=== PATIENT | female | born 1995 | race Caucasian/White ===

== ENCOUNTER 2018-08-24 14:41 | Emergency (ER) | payer BC, MEDICAID, SELFPAY ==
[2018-08-24 14:44] VITALS: BP 113/59; PULSE 103; RESP 12; TEMP 36.5; O2SAT 99
--- NOTE | 2018-08-24 15:46 | W.ED.GENAD ---
Discharge Plan Disposition Patient Disposition: HOME Condition: Good Discharge Details Chief Complaint: Orthopedic Clinical Impression: Irritation symptom of skin Primary Care Provider: Muriel Middleton ED Provider: Kylie Wallace Home Meds and New Rx's Prescriptions: No Action No Known Home Meds RF: 0 Discharge Instructions Instructions: Ingrown Nail (ED) Additional Instructions: Encourage hydration. You may use Tylenol as needed for discomfort. Warm soaks to both the foot and the thumb 4 times daily. Monitor for signs of infection including spreading of the redness, increased pain, swelling, fever/chills. If these or other new/worsening symptoms arise please seek care urgently once again. Please try to let the nail grow out as discussed. enrollment coordinator will contact you regarding follow-up with primary care. Please keep your upcoming appointment with women's wellness Referrals: Muriel Middleton [Primary Care Provider] - Discharge Data Discharge Date/Time-TO BE ENTERED AT DEPARTURE: 08/24/18 15:57 Medical Decision Making Patient is a 23-year-old [id number] female presents today with chief complaint of left thumb pain. She reports over the past several days she has noted a small erythematous area to the radial side as the base of the nailbed. States that she did strike this at one point. She denies any fevers or chills. The area of erythema has remained constant and has not changed in size. On exam, she has a small area of erythema and irritation in approximate 3 mm in diameter. She also endorsing some discomfort to the medial aspect of the great toe along the nailbed but there is no evidence of infection. She feels that she may have cut this to short. I do not see any evidence of cellulitis or infection at this time. No evidence of abscess or paronychia. I advised warm soaks to both the foot and hand. Advised Tylenol for discomfort. Patient is 6 weeks gestation. She has upcoming appointment with women's wellness. I have asked her critical care clinical nurse specialist help facilitate follow-up with primary care. We discussed new/worsening symptoms when to seek care urgently once again. All other questions or concerns were addressed and she is in agreement with this plan. HPI General Mode of arrival: ambulatory. Date/Time Provider Initiated Documentation: 08/24/18 14:52. Limitations to Documentation: no limitations. Information obtained by: patient and family (brought in by mother). History of Present Illness 23 year old F presents to the emergency department with the chief complaint of skin irritation left thumb, described as mild, with intensity rated at 2. Quality is described as burning, and is localized to the left and upper extremity. Patient reports no radiation. Patient started experiencing this day(s) and it has been constant. No relieving factors improve symptom(s), Other factors that worsen symptoms (pressure applied to area) . Patient notes no other symptoms.. Patient did receive the following treatments prior to arrival, none Related Data Home Medications Medication Instructions Recorded Confirmed Unknown [No Known Home Meds] 08/24/18 08/24/18 Allergies Allergy/AdvReac Type Severity Reaction Status Date / Time gluten AdvReac Unverified 08/24/18 14:48 General Stated Complaint: Orthopedic MI: 5 Review of Systems Constitutional Reports as per HPI, Denies chills and Denies fever(s) Musculoskeletal Reports as per HPI Integumentary/Breasts Reports as per HPI Neurologic Reports as per HPI, Denies sensory deficit and Denies paresthesias [facility] Social History Smoking/Tobacco Use Status: Never Alcohol Intake: never Drug use: Never Substance use type: does not use Do you feel safe at home: Yes Do you feel safe in your relationship?: Yes Exam Const General: cooperative, healthy appearing, comfortable, no acute distress and well developed Nutritional Appearance: average body habitus and well nourished Orientation: alert and awake Resp Effort & Inspection: normal respiratory effort, able to speak in complete sentences and no respiratory distress Cardio Rate: regular rate Rhythm: regular rhythm Skin General skin exam: no crusts, erythema (Small area of erythema radial right thumb 3 mm), no fluctuance, no hypertrophy and no induration Neuro General: alert and awake Cognition: normal cognition Speech: speech normal Gait: normal gait Sensory Exam: no sensory deficits noted Extrem Left upper extremity: full ROM, normal capillary refill, no joint enlargement and hand Details: normal to inspection, normal capillary refill, neuromotor exam normal, neurosensory exam normal, tenderness (Over area of erythema), vascular exam Details: radial pulse present and normal capillary refill and normal ROM of fingers; no unusual warmth, no swelling, no abrasions, no lacerations, no ecchymosis and no puncture wound; abnormal to inspection (Area of erythema as above) Right lower extremity: normal to inspection, full ROM, normal capillary refill, no joint enlargement and foot Details: normal capillary refill and toes with normal ROM; no tenderness Psych Appearance: grossly normal and well kempt Mental Status: mental status grossly normal Speech and Movement: speech and movement normal Course Vital Signs Temperature 36.5 C 08/24/18 14:44 Pulse 103 H 08/24/18 14:44 Respiratory Rate 12 08/24/18 14:44 Blood Pressure 113/59 L 08/24/18 14:44 Pulse Oximetry 99 08/24/18 14:44 Temperature 36.5 C 08/24/18 14:44 Temperature Source Temporal Artery Scan 08/24/18 14:44 Pulse 103 H 08/24/18 14:44 Respiratory Rate 12 08/24/18 14:44 Respiratory Effort Non-Labored 08/24/18 14:46 Blood Pressure 113/59 L 08/24/18 14:44 Blood Pressure Position Sitting 08/24/18 14:44 Pulse Oximetry 99 08/24/18 14:44 Oxygen Delivery Method Room Air 08/24/18 14:44 Oxygen Flow Rate 0 08/24/18 14:44 Pain Level 2 08/24/18 14:47
--- NOTE | 2018-08-24 15:49 | ED.GENADUL_ITS ---
Discharge Plan Disposition Patient Disposition: HOME Condition: Good Discharge Details Chief Complaint: Orthopedic Clinical Impression: Irritation symptom of skin Primary Care Provider: Muriel Middleton ED Provider: Kylie Wallace Home Meds and New Rx's Prescriptions: No Action No Known Home Meds RF: 0 Discharge Instructions Instructions: Ingrown Nail (ED) Additional Instructions: Encourage hydration. You may use Tylenol as needed for discomfort. Warm soaks to both the foot and the thumb 4 times daily. Monitor for signs of infection including spreading of the redness, increased pain, swelling, fever/chills. If these or other new/worsening symptoms arise please seek care urgently once again. Please try to let the nail grow out as discussed. clinical unit coordinator will contact you regarding follow-up with primary care. Please keep your upcoming appointment with women's wellness Referrals: Muriel Middleton [Primary Care Provider] - Discharge Data Discharge Date/Time-TO BE ENTERED AT DEPARTURE: 08/24/18 15:57 Medical Decision Making Patient is a 23-year-old [id number] female presents today with chief complaint of left thumb pain. She reports over the past several days she has noted a small erythematous area to the radial side as the base of the nailbed. States that she did strike this at one point. She denies any fevers or chills. The area of erythema has remained constant and has not changed in size. On exam, she has a small area of erythema and irritation in approximate 3 mm in diameter. She also endorsing some discomfort to the medial aspect of the great toe along the nailbed but there is no evidence of infection. She feels that she may have cut this to short. I do not see any evidence of cellulitis or infection at this time. No evidence of abscess or paronychia. I advised warm soaks to both the foot and hand. Advised Tylenol for discomfort. Patient is 6 weeks gestation. She has upcoming appointment with women's wellness. I have asked her field care advocate help facilitate follow-up with primary care. We discussed new/worsening symptoms when to seek care urgently once again. All other questions or concerns were addressed and she is in agreement with this plan. HPI General Mode of arrival: ambulatory . Date/Time Provider Initiated Documentation: 08/24/18 14:52 . Limitations to Documentation: no limitations . Information obtained by: patient and family (brought in by mother) . History of Present Illness 23 year old F presents to the emergency department with the chief complaint of skin irritation left thumb, described as mild, with intensity rated at 2. Quality is described as burning, and is localized to the left and upper extremity. Patient reports no radiation. Patient started experiencing this day(s) and it has been constant. No relieving factors improve symptom(s), Other factors that worsen symptoms (pressure applied to area) . Patient notes no other symptoms.. Patient did receive the following treatments prior to arrival, none Related Data Home Medications Medication Instructions Recorded Confirmed Unknown [No Known Home Meds] 08/24/18 08/24/18 Allergies Allergy/AdvReac Type Severity Reaction Status Date / Time gluten AdvReac Unverified 08/24/18 14:48 General Stated Complaint: Orthopedic MI: 5 Review of Systems Constitutional Reports as per HPI, Denies chills and Denies fever(s) Musculoskeletal Reports as per HPI Integumentary/Breasts Reports as per HPI Neurologic Reports as per HPI, Denies sensory deficit and Denies paresthesias [facility] Social History Smoking/Tobacco Use Status: Never Alcohol Intake: never Drug use: Never Substance use type: does not use Do you feel safe at home: Yes Do you feel safe in your relationship?: Yes Exam Const General: cooperative, healthy appearing, comfortable, no acute distress and well developed Nutritional Appearance: average body habitus and well nourished Orientation: alert and awake Resp Effort & Inspection: normal respiratory effort, able to speak in complete sentences and no respiratory distress Cardio Rate: regular rate Rhythm: regular rhythm Skin General skin exam: no crusts, erythema (Small area of erythema radial right thumb 3 mm), no fluctuance, no hypertrophy and no induration Neuro General: alert and awake Cognition: normal cognition Speech: speech normal Gait: normal gait Sensory Exam: no sensory deficits noted Extrem Left upper extremity: full ROM, normal capillary refill, no joint enlargement and hand Details: normal to inspection, normal capillary refill, neuromotor exam normal, neurosensory exam normal, tenderness (Over area of erythema), vascular exam Details: radial pulse present and normal capillary refill and normal ROM of fingers; no unusual warmth, no swelling, no abrasions, no lacerations, no ecchymosis and no puncture wound; abnormal to inspection (Area of erythema as above) Right lower extremity: normal to inspection, full ROM, normal capillary refill, no joint enlargement and foot Details: normal capillary refill and toes with normal ROM; no tenderness Psych Appearance: grossly normal and well kempt Mental Status: mental status grossly normal Speech and Movement: speech and movement normal Course Vital Signs Temperature 36.5 C 08/24/18 14:44 Pulse 103 H 08/24/18 14:44 Respiratory Rate 12 08/24/18 14:44 Blood Pressure 113/59 L 08/24/18 14:44 Pulse Oximetry 99 08/24/18 14:44 Temperature 36.5 C 08/24/18 14:44 Temperature Source Temporal Artery Scan 08/24/18 14:44 Pulse 103 H 08/24/18 14:44 Respiratory Rate 12 08/24/18 14:44 Respiratory Effort Non-Labored 08/24/18 14:46 Blood Pressure 113/59 L 08/24/18 14:44 Blood Pressure Position Sitting 08/24/18 14:44 Pulse Oximetry 99 08/24/18 14:44 Oxygen Delivery Method Room Air 08/24/18 14:44 Oxygen Flow Rate 0 08/24/18 14:44 Pain Level 2 08/24/18 14:47
--- NOTE | 2018-08-26 19:05 | NUR.NOTE ---
Nursing Note: Referral was faxed today to PCP for follow up. Lydia Matos.
== END 2018-08-24 15:57 | disposition home or self-care (01) ==
PROVIDERS: Emergency Provider Physician Assistant; PCP Nurse Practitioner Family
DX: L53.9 Erythematous condition, unspecified (principal)
CPT/HCPCS: 99282

== ENCOUNTER 2018-09-04 15:46 | Emergency (ER) | payer BC, MEDICAID, SELFPAY ==
[2018-09-04 15:55] VITALS: BP 104/60; PULSE 86; RESP 16; TEMP 36.6; O2SAT 98
--- NOTE | 2018-09-04 16:18 | ED.GENADUL_ITS ---
Discharge Plan Disposition Patient Disposition: HOME Condition: Fair Discharge Details Chief Complaint: AnimalBite Clinical Impression: Cat bite involving extremity Primary Care Provider: Muriel Middleton ED Provider: Kylie Wallace Home Meds and New Rx's Prescriptions: New amoxicillin-pot clavulanate [Augmentin] 875-125 mg tablet 1 tab PO BID Qty: 14 RF: 0 Discharge Instructions Instructions: Animal Bite (ED) Additional Instructions: Please keep wound clean and dry. Please take Augmentin as prescribed. Even if symptoms improve, please take the entire course. Please keep your upcoming appointment on Sunday for reevaluation of the wound. If you develop fever/chills, increased pain, spreading of the redness, drainage or other new/worsening symptoms please seek care urgently once again. In regard to rabies, the cat will need to be quarantined for the next 10 days. The cat will need to be updated on exact scenes. The [facility] officer will be in contact regarding further care. If the cat develops any symptoms of rabies you will need to receive the prophylactic vaccines immediately. Referrals: Lamar Delvalle [ [facility] STAFF PHYSICIAN] - Muriel Middleton [Primary Care Provider] - Discharge Data Discharge Date/Time-TO BE ENTERED AT DEPARTURE: 09/04/18 16:55 Medical Decision Making Patient is a 23-year-old [id number] female presenting today for chief complaint of cat bite. Patient is 10 weeks . No thus far. She reports that she was bit by a feral cat when she was trying to feed 3 days ago. Denies any numbness or tingling. Denies other injuries from the incident. Patient notes puncture wound to the ulnar dorsal aspect of the proximal hand. States that it has been developing erythema since the initial time of the bite. Patient is unclear of her tetanus. Reports the cat does belong to her father that was born under the house and again is feral. Cat has not had any vaccines. Consult with Dr. Delvalle regarding rabies prophylaxis. At this point, she advised quarantine of the cat over prophylaxis and vaccines. I discussed this with the patient who reports that she is able to capture the cat and keep in house. On further discussion, this Sounds more like the patient being born outdoors side and is not a true feral cat. Cat is able to be quarantined to easily. She reports it is a kitten that is only a few weeks old. The bite was reported to the health officer of the [facility]. Patient is not UTD, plan to update tetanus today. Will use Augmentin, discussed this Dr. Delvalle. Patient has appointment with [facility] Sunday and can have this reassessed. She was given strict return precautions. All questions and concerns were addressed, she is in agreement with this plan. HPI General Mode of arrival: ambulatory . Date/Time Provider Initiated Documentation: 09/04/18 16:00 . Limitations to Documentation: no limitations . Information obtained by: patient, family (accompanied by signfiicant other) and RN notes reviewed . History of Present Illness 23 year old F presents to the emergency department with the chief complaint of cat bite right hand, described as mild, with intensity rated at 3. Quality is described as aching, and is localized to the right and upper extremity. Patient reports no radiation. Patient started experiencing this day(s) (3) and it has been constant. No relieving factors improve symptom(s), No exacerbating factors reported . Patient notes rash (erythema or area of bite); denies diaphoresis, fever/chills, malaise, nausea/vomiting and weakness. Patient did receive the following treatments prior to arrival, none Related Data Home Medications Medication Instructions Recorded Confirmed amoxicillin-pot clavulanate 1 tab PO BID #14 tab 09/04/18 [Augmentin] Previous Rx's Medication Instructions Recorded amoxicillin-pot clavulanate 1 tab PO BID #14 tab 09/04/18 [Augmentin] Allergies Allergy/AdvReac Type Severity Reaction Status Date / Time gluten AdvReac Unverified 09/04/18 16:03 General Stated Complaint: AnimalBite MI: 3 Review of Systems Constitutional Reports as per HPI, Denies chills, Denies fatigue, Denies fever(s), Denies lethargy and Denies poor appetite Cardiovascular Denies chest pain and Denies dyspnea Respiratory Denies cough and Denies dyspnea Gastrointestinal Denies abdominal pain, Denies nausea and Denies vomiting Musculoskeletal Reports as per HPI Integumentary/Breasts Reports as per HPI Neurologic Reports as per HPI, Denies sensory deficit and Denies paresthesias Endocrine Denies fatigue [facility] Social History Smoking/Tobacco Use Status: Never Alcohol Intake: never Drug use: Never Substance use type: does not use Do you feel safe at home: Yes Do you feel safe in your relationship?: Yes Exam Const General: cooperative, healthy appearing, comfortable, no acute distress and well developed Nutritional Appearance: average body habitus and well nourished Orientation: alert and awake Resp Effort & Inspection: normal respiratory effort, able to speak in complete sentences and no respiratory distress Cardio Rate: regular rate Rhythm: regular rhythm Skin General skin exam: erythema (localized erythema and warmth 2cm x 5[facility] Neuro General: alert and awake Cognition: normal cognition Speech: speech normal Gait: normal gait Sensory Exam: no sensory deficits noted Extrem Right upper extremity: full ROM, normal capillary refill, no joint enlargement and hand Details: abnormal to inspection (erythema as above), normal capillary refill, neuromotor exam normal, neurosensory exam normal, tendon exam normal and warmth (over erythema, no fluctuance, no discharge); no tenderness (no pain with ROM of thumb both passive and active) and no swelling; abnormal to inspection (erythema as above) and no edema Psych Appearance: grossly normal and well kempt Mental Status: mental status grossly normal Speech and Movement: speech and movement normal Course Vital Signs Temperature 36.6 C 09/04/18 15:55 Pulse 86 09/04/18 15:55 Respiratory Rate 16 09/04/18 15:55 Blood Pressure 104/60 09/04/18 15:55 Pulse Oximetry 98 09/04/18 15:55 Temperature 36.6 C 09/04/18 15:55 Temperature Source Tympanic 09/04/18 15:55 Pulse 86 09/04/18 15:55 Respiratory Rate 16 09/04/18 15:55 Respiratory Effort 09/04/18 16:02 Blood Pressure 104/60 09/04/18 15:55 Blood Pressure Position Standing 09/04/18 15:55 Pulse Oximetry 98 09/04/18 15:55 Oxygen Delivery Method Room Air 09/04/18 15:55 Oxygen Flow Rate 0 09/04/18 15:55 Pain Level 3 09/04/18 15:55
[2018-09-04] MEDS: Amoxicillin 875/Clav. 125 TAB PO (16:43)
--- NOTE | 2018-09-04 17:25 | NUR.NOTE ---
Addendum entered by Lydia Matos 09/04/18 17:41: Animal bite report was faxed to the [facility] Office. Lydia Matos. Original Note: Nursing Note: Spoke with Caro Kyle; [facility] Offcer and she is aware of the animal bite. She will follow up. Lydia Matos.
== END 2018-09-04 16:55 | disposition home or self-care (01) ==
PROVIDERS: Emergency Provider Physician Assistant; PCP Nurse Practitioner Family
DX: O99.711 Diseases of the skin and subcutaneous tissue complicating pregnancy, first trimester (principal); S61.451A Open bite of right hand, initial encounter; W55.01XA Bitten by cat, initial encounter; Z3A.10 10 weeks gestation of pregnancy
CPT/HCPCS: 90471; 99283